=== PATIENT | female | born 1945 | race Hispanic/Latino ===

== ENCOUNTER 2019-10-22 12:29 | Emergency (ER) | payer MEDICARE, OTHER ==
[~2019-10-22] VITALS: Ht 160 cm; Wt 99.8 kg
--- NOTE | 2019-10-22 12:54 | Emergency Department Note ---
History of Present Illnes History of Present Illness Chief Complaint: General Medicine Complaints History of Present Illness This is a 74 year old female WITH CC OF FALL AT 7 AM; STATES SHE DOES NOT KNOW HOW SHE FELL; PATIENT ALERT AND ORIENTED, RESP EVEN AND NONLABORED, APPEARS IN NO DISTRESS, RATES PAIN 2/10. DENIES NAUSEA OR VOMITING Historian: Patient Arrival Mode: Car Onset (how long ago): day(s) (1) Location: HEAD Quality: DULL LEFT SHOULDER Severity: mild Onset quality: sudden Duration (how long): day(s) (1) Timing of current episode: constant Progression: unchanged Chronicity: new Context: Denies recent illness, Denies recent surgery, Denies recent immobilization, Denies recent travel, Denies trauma/injury, Denies new medications, Denies hx of DVT/PE, Denies non-compliance w/ medications, Denies other Relieving factors: none Exacerbating factors: none Associated symptoms: Denies denies other symptoms, Denies confusion, Denies chest pain, Denies cough, Denies diaphoresis, Denies fever/chills, Denies headaches, Denies loss of appetite, Denies malaise, Denies nausea/vomiting, Denies rash, Denies seizure, Denies shortness of breath, Denies syncope, Denies weakness, Denies other Treatments prior to arrival: none Past Medical/Family History Physician Review I have reviewed the patient's past medical and family history. Any updates have been documented here. Past Medical History Recent Fever: No Clinical Suspicion of Infectio: No New/Unexplained Change in Ment: No Past Medical History: Hypertension, Asthma Past Surgical History: None Social History Smoking Cessation: Never Smoker Physically hurt or threatened: No Review of Systems Review of Systems Constitutional: Reports no symptoms EENTM: Reports no symptoms Cardiovascular: Reports no symptoms Respiratory: Reports no symptoms Gastrointestinal: Reports no symptoms Genitourinary: Reports no symptoms Musculoskeletal: Reports no symptoms Integumentary: Reports no symptoms Neurological: Reports as per HPI, Reports headache Psychological: Reports no symptoms Endocrine: Reports no symptoms Hematological/Lymphatic: Reports no symptoms Physical Exam Related Data Allergies: Coded Allergies: No Known Drug Allergies (Verified Allergy, Unknown, 10/25/08) Triage Vital Signs Vital Signs Date Time Temp Pulse Resp B/P (MAP) Pulse Ox O2 Delivery O2 Flow Rate FiO2 10/22/19 12:37 72 18 132/90 97 Room Air Vital signs reviewed: Yes Physical Exam CONSTITUTIONAL Constitutional: Present well-developed, Present well-nourished HENT HENT: Present normocephalic, Present oropharynx clear/moist, Present nose normal, Present other (TENDERNESS OCCIPITAL AREA) HENT L/R: Present left ext ear normal, Present right ext ear normal EYES Eyes: Reports PERRL, Reports conjunctivae normal NECK Neck: Present ROM normal PULMONARY Pulmonary: Present effort normal, Present breath sounds normal CARDIOVASCULAR Cardiovascular: Present regular rhythm, Present heart sounds normal, Present capillary refill normal, Present normal rate GASTROINTESTINAL Abdominal: Present soft, Present nontender, Present bowel sounds normal GENITOURINARY Genitourinary: Present exam deferred SKIN Skin: Present warm, Present dry MUSCULOSKELETAL Musculoskeletal: Present ROM normal NEUROLOGICAL Neurological: Present alert, Present oriented x 3, Present no gross motor or sensory deficits PSYCHOLOGICAL Psychological: Present mood/affect normal, Present judgement normal Results Imaging Imaging results reviewed: Yes Procedures 12 Lead ECG Interpretation ECG Interpretation : ECG: ECG 1 [employer]ty [employer] Supervisor: Interpreted by ED physician Date: Oct 22, 2019 Time: 12:53 Rhythm: sinus rhythm Ectopy: PVC's Rate: normal BPM: 77 QRS axis: normal Conduction: right bundle branch block ST segments normal: Yes T waves normal: Yes Assessment & Plan Medical Decision Making MDM head injury,, bleed Reassessment Reassessment better Assessment & Plan Final Impression: (1) Acute pain due to trauma (2) Head injury Depart Disposition: HOME, SELF-CARE Last Vital Signs Date Time Temp Pulse Resp B/P (MAP) Pulse Ox O2 Delivery O2 Flow Rate FiO2 10/22/19 12:37 72 18 132/90 97 Room Air TAY ZIMMER MD Oct 22, 2019 12:54
[2019-10-22] MEDS ORDERED: ASPIRIN 81 MG CHEW TAB PO ONE (13:00)
--- NOTE | 2019-10-22 13:28 | Diagnostic Imaging Report ---
EXAMINATION: CHEST SINGLE (PORTABLE) INDICATION: ERMD ORDER COMPARISON: None FINDINGS: AP view TUBES and LINES: None. LUNGS/PLEURA: Lungs are well inflated. There are bilateral interstitial opacities could be due to pulmonary edema.. There is no pleural effusion or pneumothorax. HEART AND MEDIASTINUM: Cardiac size is mildly enlarged. BONES AND SOFT TISSUES: No acute osseous lesion. Soft tissues are unremarkable. UPPER ABDOMEN: No free air under the diaphragm. IMPRESSION: Mild cardiomegaly and pulmonary edema. Signed by: Geo Mcintosh MD on 10/22/2019 1:25 PM
[2019-10-22 13:47] LABS: BASOPHILS # (AUTO) 0.1 (0.0-0.1); BASOPHILS % 0.6 % (0.0-1.0); EOSINOPHILS # (AUTO) 0.7 (0.0-0.4); EOSINOPHILS % 6.5 % (0.0-6.0); HEMATOCRIT 37.7 % (34.2-44.1); HEMOGLOBIN 11.9 g/dL (12.0-16.0); LYMPHOCYTES # (AUTO) 2.5 (1.0-3.2); LYMPHOCYTES % 24.6 % (18.0-39.1); MEAN CORPUSCULAR HEMOGLOBIN 29.8 pg (28-32); MEAN CORPUSCULAR HGB CONC 31.6 g/dL (31-35); MEAN CORPUSCULAR VOLUME 94.3 fL (81-99); MONOCYTES # (AUTO) 0.7 (0.2-0.8); MONOCYTES % 7.2 % (4.4-11.3); NEUTROPHILS # (AUTO) 6.1 (2.1-6.9); NEUTROPHILS % 60.7 % (38.7-80.0); PLATELET COUNT 230 x10e3/uL (140-360); RED CELL DISTRIBUTION WIDTH 12.9 % (11.7-14.4)
[2019-10-22 14:06] LABS: ALANINE AMINOTRANSFERASE 20 IU/L (0-55); ALBUMIN 3.6 g/dL (3.5-5.0); ALBUMIN/GLOBULIN RATIO 1.1 (0.8-2.0); ALKALINE PHOSPHATASE 100 IU/L (40-150); ANION GAP 11.8 mmol/L (8-16); BLOOD UREA NITROGEN 16 mg/dL (7-26); BUN/CREATININE RATIO 20 (6-25); CALCIUM 8.9 mg/dL (8.4-10.2); CARBON DIOXIDE 30 mmol/L (22-29); CHLORIDE 100 mmol/L (98-107); CREATINE KINASE 85 IU/L (29-168); CREATININE, SERUM 0.79 mg/dL (0.57-1.11); EST GLOMERULAR FILTRATION RATE > 60 ML/MIN (60-); GLUCOSE 109 mg/dL (74-118); POTASSIUM 4.8 mmol/L (3.5-5.1); SODIUM 137 mmol/L (136-145)
--- NOTE | 2019-10-22 14:07 | Diagnostic Imaging Report ---
EXAMINATION: Head and cervical spine CT without contrast. HISTORY: Status post fall, head trauma, pain COMPARISON: None. TECHNIQUE: Multidetector axial images were obtained without contrast from the foramen magnum to the vertex and through the cervical spine. The images were reconstructed using brain and bone algorithms. Thin section brain images were reformatted into coronal and sagittal planes. Dose modulation, iterative reconstruction, and/or weight based adjustment of the mA/kV was utilized to reduce the radiation dose to as low as reasonably achievable. HEAD CT FINDINGS: Skull/scalp: No lytic or blastic lesions. No fractures. Parenchyma: Few scattered white matter hypodensities, most likely nonspecific chronic microvascular ischemic changes. No mass, hemorrhage or CT evidence of acute vascular insult. Brain volume: Normal for age. Ventricles: No hydrocephalus or displacement. Arteries: No density suggestive of thrombus. Dural sinuses: No abnormal density. Extra-axial spaces: Approximately 8 mm hyperdensity in the deep frontoparietal interhemispheric fissure may correspond to focal calcification versus tiny meningioma without associated mass effect. Foramen magnum: No mass, Chiari malformation, or basilar invagination. Sella: No obvious mass. Paranasal/mastoid sinuses: Imaged portions unremarkable. CERVICAL SPINE CT FINDINGS: Alignment:Normal alignment and lordosis. Soft tissues: Mildly prominent and hypoattenuating partially visualized thyroid gland, possible approximately 2 cm hypoattenuating nodule, a thyroid ultrasound is recommended for further evaluation if clinically indicated and no previously evaluated.. Vertebrae: Normal height and density. No acute fracture, infection or neoplasm. Degenerative changes: Mild multilevel spondylosis, uncovertebral and facet arthrosis, mainly at C5-C6 and C6-7 without significant stenoses. IMPRESSION: Head CT: 1. No acute postraumatic intracranial hemorrhage. 2. Mild chronic microvascular ischemic changes. Cervical spine CT: 1. No acute fractures or dislocations. 2. Mild chronic degenerative changes as described. Note: Acute post traumatic spinal cord, vascular or ligamentous injury cannot adequately be assessed with CT. Signed by: Dr. Berta Roper M.D. on 10/22/2019 2:04 PM
[2019-10-22 14:42] VITALS: BP 151/84
== END 2019-10-22 15:00 | disposition home or self-care (01) ==
LOC: ER 12:47
DX: S00.83XA Contusion of other part of head, initial encounter (principal); R51 Headache; M25.512 Pain in left shoulder; W18.30XA Fall on same level, unspecified, initial encounter; Y92.008 Other place in unspecified non-institutional (private) residence as the place of occurrence of the external cause; I10 Essential (primary) hypertension; J45.909 Unspecified asthma, uncomplicated; I51.7 Cardiomegaly; J81.1 Chronic pulmonary edema
CPT/HCPCS: 36415; 70450; 71045; 72125; 80053; 82550; 82553; 83735; 84484; 85025; 93005; 99284